=== PATIENT | female | born 1985 | race Two or more races ===

== ENCOUNTER → 2019-07-22 | Emergency (ER) | payer OTHER ==
[~2019-07-22] VITALS: Ht 149.9 cm; Wt 81.6 kg
[~2019-07-22] MED LIST: KETO10TA2 PO; MOTRIN800 MG PO; NORFLEX100MG PO; ORPH100T PO
== END | disposition home or self-care (01) ==
LOC: ER 00:06
DX: S13.4XXA Sprain of ligaments of cervical spine, initial encounter (principal); S30.0XXA Contusion of lower back and pelvis, initial encounter; V49.9XXA Car occupant (driver) (passenger) injured in unspecified traffic accident, initial encounter; Y93.89 Activity, other specified; Y92.488 Other paved roadways as the place of occurrence of the external cause; Y99.8 Other external cause status

== ENCOUNTER 2021-10-28 16:37 | Emergency (ER) | payer OTHER ==
[~2021-10-28] VITALS: Ht 149.9 cm; Wt 70.8 kg
[2021-10-28] MEDS ORDERED: ADIPEX-P37.5 MG PO (16:50)
== END 2021-10-28 18:45 | disposition home or self-care (01) ==
LOC: ER 16:37
DX: R00.2 Palpitations (principal)

== ENCOUNTER 2024-03-04 21:04 | Emergency (ER) | payer OTHER ==
[~2024-03-04] VITALS: Ht 149.9 cm; Wt 129.3 kg
[~2024-03-04 21:04] MED LIST changes: +ADIPEX-P37.5 MG PO; +CLEOCIN HCL300 MG
[2024-03-04 23:03] LABS: HEMATOCRIT 32.3 % (36.0-45.00); HEMOGLOBIN 10.8 g/dL (12.0-15.00); MEAN CELL VOLUME 77.3 fL (80.00-100.00); MEAN CORPUSCULAR HEMOGLOBIN 25.9 pg (27.00-32.0); MEAN CORPUSCULAR HGB CONC 33.5 g/dl (32.0-36.0); PLATELET COUNT 446 K/uL (150-450); RED BLOOD COUNT 4.18 M/uL (4.00-6.00); RED CELL DISTRIBUTION WIDTH 15.4 % (11.5-14.5)
[2024-03-04 23:36] LABS: ALBUMIN 3.4 gm/dL (3.4-5.0); BILIRUBIN TOTAL 0.31 mg/dL (0.3-1.2); CREATININE SERUM 0.6 mg/dL (0.55-1.02); GFR 111.29; GLOBULINA 4.1 G/DL (2.4-3.5); POTASSIUM 4.05 mEq/L (3.5-5.1); TOTAL PROTEIN 7.5 gm/dL (6.4-8.2)
== END 2024-03-05 01:36 | disposition home or self-care (01) ==
LOC: ER 21:05
PROVIDERS: General Practice
DX: R53.81 Other malaise (principal); R00.2 Palpitations